=== PATIENT | male | born 1955 | race Caucasian/White ===

== ENCOUNTER 2022-02-26 15:40 | Emergency (ER) | payer MEDICARE, OTHER ==
[2022-02-26 17:07] LABS: BUN/CREATININE RATIO 7 (0-10)
== END 2022-02-26 16:18 | disposition expired ==
LOC: ER1 15:40 → EDBD 15:40 → ER1 16:18
PROVIDERS: Emergency Medicine
DX: I46.9 Cardiac arrest, cause unspecified (principal)
CPT/HCPCS: 31500; 80053; 92950; 99285